=== PATIENT | male | born 1930 | race Caucasian/White ===

== ENCOUNTER 2019-02-19 13:02 | Outpatient (CLI) | payer MEDICARE, OTHER ==
[~2019-02-19] VITALS: Ht 182.9 cm; Wt 81.0 kg
[2019-02-19] MEDS ORDERED: MULT-178 PO (13:32)
[2019-02-19] MEDS ORDERED: LOVA20TA2 PO (13:32)
[2019-02-19] MEDS ORDERED: MELA5TAB14 PO (13:32)
[2019-02-19] MEDS ORDERED: TURM538C PO (13:32)
[2019-02-19 13:44] VITALS: BP 158/79
[2019-02-19 14:31] LABS: BILIRUBIN,URINE NEGATIVE (NEGATIVE); CLARITY,URINE CLEAR; COLOR,URINE YELLOW; GLUCOSE, URINE (UA) NEGATIVE (NEGATIVE); KETONES,URINE NEGATIVE (NEGATIVE); LEUKOCYTE ESTERASE ,URINE NEGATIVE (NEGATIVE); NITRITE,URINE NEGATIVE (NEGATIVE); PH,URINE 5 (5-9); PROTEIN,URINE NEGATIVE (NEGATIVE); UROBILINOGEN,URINE NORMAL (NORMAL)
[2019-02-19 14:39] LABS: PROTHROMBIN TIME PATIENT 13.4 SEC (12.2-14.7)
[2019-02-19 14:40] LABS: BACTERIA,URINE NEGATIVE /HPF; SQUAMOUS EPITHELIAL CELL,UR 0-2 /HPF
== END 2019-02-19 15:13 ==
LOC: PREOP 13:02
PROVIDERS: ATTEND Orthopaedic Surgery
DX: Z01.812 Encounter for preprocedural laboratory examination (principal); Z11.2 Encounter for screening for other bacterial diseases; M17.12 Unilateral primary osteoarthritis, left knee; R53.83 Other fatigue
CPT/HCPCS: 36415; 81000; 85610; 85652; 86850; 86900; 86901; 87081

== ENCOUNTER 2019-02-27 05:48 | Inpatient (IN) | payer MEDICARE ==
--- NOTE | 2019-02-18 08:35 | HISTORY AND PHYSICAL ---
DATE OF SERVICE: ADMISSION HISTORY AND PHYSICAL This will be for inpatient admission on 02/27/2019 for left total knee arthroplasty. The patient will require regular inpatient admission due to pain management issues, gait abnormalities, requirement for extensive physical therapy and associated comorbidities. HISTORY OF PRESENT ILLNESS: The patient is an 88-year-old gentleman with longstanding bilateral knee pain. He has undergone treatment with injections without relief. He has severe osteoarthritis in his medial and patellofemoral compartments by radiographs. He has obtained medical clearance. He understands that due to his advanced age, he is at higher risk for complications, but due to progressive loss of function, the patient has elected to proceed with total knee arthroplasty. REVIEW OF SYSTEMS: No chest pain, no shortness of breath. No dysuria. PAST MEDICAL HISTORY: Hypertension, hyperlipidemia. PAST SURGICAL HISTORY: Left shoulder. FAMILY HISTORY: Noncontributory. PRIMARY CARE PROVIDER: [facility]. MEDICATIONS: Melatonin, multivitamin, lovastatin, ibuprofen, lisinopril. ALLERGIES: No known drug allergies. SOCIAL HISTORY: The patient denies alcohol and tobacco use. PHYSICAL EXAMINATION: GENERAL: The patient is a well-developed, well-nourished, in no acute distress. HEENT: Normocephalic, atraumatic. Pupils are equal, round and reactive to light. Oropharynx is clear. NECK: Supple. No lymphadenopathy. LUNGS: Clear to auscultation bilaterally. HEART: Regular rate and rhythm. ABDOMEN: Soft, nontender, nondistended. EXTREMITIES: The patient ambulates with an antalgic gait. His left knee demonstrates varus alignment. No skin lesions are noted. His range of motion is 0/2/130. There is no varus valgus laxity. Negative anterior and posterior drawer. Slight effusions are noted. IMPRESSION: Severe left knee osteoarthritis, unresponsive to conservative measures. PLAN: Left total knee arthroplasty. Risks, benefits, options, ramifications and recovery were discussed at length with the patient. He understands and wishes to proceed. Job ID: [id number] DocumentID: [id number] Dictated Date: 02/18/2019 08:22:45 Application Processor Date: 02/18/2019 08:34:55 Dictated By: KEN RIOS MD
[2019-02-27] VITALS (11 sets, daily range): BP systolic 135–161; BP diastolic 53–89
[~2019-02-27] VITALS: Ht 182.9 cm; Wt 81.0 kg
[~2019-02-27 05:48] MED LIST: LOVA20TA2 PO; MELA5TAB14 PO; MULT-178 PO; TURM538C PO
[2019-02-27] MEDS: LACTATED RINGERS 1,000 ML IV PRN ×2 (06:25→07:45)
[2019-02-27] MEDS ORDERED: ROPIVACAINE 5MG/ML 30ML VIAL ONE (06:38)
[2019-02-27] MEDS ORDERED: MIDAZOLAM 2 MG/2 ML (VERSED) VIAL ONE (06:38)
[2019-02-27] MEDS ORDERED: CATHETER FLUSH 10 ML SYR IV PRN (06:45)
[2019-02-27] MEDS ORDERED: CEFUROXIME INJECTION 1,500 MG in WATER (STERILE) FOR INJECTION 15 ML IV ONE (06:45)
[2019-02-27] MEDS ORDERED: fentaNYL INJECTION 100 MCG/2 ML AMP ONE (06:57)
[2019-02-27] MEDS ORDERED: proPOfol 200 MG/20 ML (DIPRIVAN) VIAL IV ONE (06:57)
[2019-02-27] MEDS ORDERED: LIDOCAINE PF 2% 5 ML (XYLOCAINE) VIAL ONE ×2 (06:57→09:29)
[2019-02-27] MEDS ORDERED: SCOPOLAMINE 1.5 MG (TRANSDERM-SCOP) PATCH ONE (06:59)
[2019-02-27] MEDS ORDERED: FAMOTIDINE 20MG/2ML IV (PEPCID) ONE (06:59)
[2019-02-27] MEDS ORDERED: ONDANSETRON 4 MG/2 ML (SDV) Z0FRAN ONE (06:59)
[2019-02-27] MEDS ORDERED: SEVOFLURANE (ULTANE) 15 ML INHAL SOLN ONE ×2 (07:03→09:13)
[2019-02-27] MEDS ORDERED: ACETAMINOPHEN 325 MG TABLET PO PRN (07:15)
[2019-02-27] MEDS ORDERED: ONDANSETRON 4 MG/2 ML (SDV) Z0FRAN IV ONE (07:15)
[2019-02-27] MEDS ORDERED: morphine PCA 100 MG/100 ML BAG IV PRN (07:15)
[2019-02-27] MEDS ORDERED: FAMOTIDINE 20MG/2ML IV (PEPCID) IV ONE (07:15)
[2019-02-27] MEDS ORDERED: SCOPOLAMINE 1.5 MG (TRANSDERM-SCOP) PATCH TOP ONE (07:15)
[2019-02-27] MEDS ORDERED: ONDANSETRON 4 MG/2 ML (SDV) Z0FRAN IVP PRN ×2 (07:15→09:15)
[2019-02-27] MEDS ORDERED: diphenhydrAMINE 50 MG/ML INJ (BENADRYL) IVP PRN (07:15)
--- NOTE | 2019-02-27 07:26 | Progress Note-Pre Operative ---
Pre-Operative Progress Note H&P Reviewed The H&P was reviewed, patient examined and no changes noted. Date Seen by Provider: Feb 27, 2019 Time Seen by Provider: 07:12 Date H&P Reviewed: Feb 27, 2019 Time H&P Reviewed: 07:11 Pre-Operative Diagnosis: left knee primary osteoarthritis KEN RIOS MD Feb 27, 2019 07:26
--- NOTE | 2019-02-27 07:27 | Progress Note-Post Operative ---
Post-Operative Progess Note Surgeon (s)/Legal Recruiter (s) Surgeon KEN RIOS MD Legal Recruiter: Kelvin Petty Pre-Operative Diagnosis left knee primary osteoarthritis Post-Operative Diagnosis left knee primary osteoarthritis Procedure & Operative Findings Date of Procedure 02/27/19 Procedure Performed/Findings left total knee arthroplasty Anesthesia Type GETA Estimated Blood Loss Estimated blood loss (mL): minimal Specimens/Packing Specimens Removed none Packing: none KEN RIOS MD Feb 27, 2019 07:27
--- NOTE | 2019-02-27 07:29 | D/C HH Face to Face Order ---
D/C Face to Face Orders Instructions for Patient Via [facility], Patient Instructions/FollowUp: three weeks Physician to follow Patient: three weeks Discharge Diet for Home: Regular Diet Patient Data-Allergies,Ht & Wt Patient Allergies: Coded Allergies: No Known Drug Allergies (Unverified , 02/19/19) Height (Feet): 6 Height (Inches): 0.00 Weight (Pounds): 178 Weight (Ounces): 9.0 Home Health Need/Face to Face Date of Face to Face: Feb 27, 2019 Clinical Findings: Instability, Muscle weakness, Non or partial weight bearing, Pain with ambulation, Unsteady gait I have seen Pt [id number]: Yes Discharged To: Home Diagnosis/Conditions: left total knee arthroplasty Patient is Homebound due to: Juju fall risk due to instabilty, Muscle wea kness, Pain w/ambulation Homebound Status Due to the above stated illness, injury or surgical procedure (medical condition or diagnosis) and associated clinical findings, the patient is homebound because of his/her inability to leave home except with aid of a supportive device and/or person AND leaving the home requires a considerable and taxing effort or is medically contraindicated. Pt req the following assistanc: [facility] Nursing Orders Home Health Services Order: Physical Therapy-Evaluate & Treat DC left knee carlos and apply steri strips 03/13/19 [facility] Therapy Line Start Date: Feb 27, 2019 Therapy Orders Therapy Orders: Physical Therapy, PT to assess for OT Therapy Specific Orders: Eval assistive deivces, Teach enviro modifications/safety, Gait training, Increase strength/endurance, Provider maintenance therapy Certify Stmt I certify that this patient is under my care and that I, a nurse practitioner or a physician; a student assistant working with me, had a face to face encounter that - meets the physician face to face encounter requirements with this patient as dated. KEN RIOS MD Feb 27, 2019 07:29
[2019-02-27] MEDS ORDERED: OXYC1TAB87 PO (07:30)
[2019-02-27] MEDS ORDERED: INTRA-ARTICULAR IU ONE ×5 (07:30)
[2019-02-27] MEDS ORDERED: TRANEXAMIC ACID 100 MG/ML 10 ML INJECTION IV ONE (07:35)
[2019-02-27] MEDS ORDERED: GLYCOPYRROLATE 0.2 MG/ML (ROBINUL) 2 ML VIAL ONE (08:00)
[2019-02-27] MEDS ORDERED: HYDROmorphone 2 MG/ML VIAL (DILAUDID) ONE (09:12)
[2019-02-27] MEDS ORDERED: HYDROmorphone 2 MG/ML VIAL (DILAUDID) IV ONE (09:15)
--- NOTE | 2019-02-27 09:54 | Progress Note ---
Standard Progress Note Progress Notes/Assess & Plan Date Seen by a Provider: Feb 27, 2019 Time Seen by a Provider: 09:52 Progress/Assessment & Plan post op check no complaints radiographs--HW well positioned without fracture LLE--2 plus DP pulse with brisk cap refill. Intact DF and PF of toes and ankle with intact sensation throughout. S/P LTKA mobilize as able KEN RIOS MD Feb 27, 2019 09:54
--- NOTE | 2019-02-27 10:06 | Diagnostic Imaging Report ---
Indication: Postop left knee replacement. Time of exam: 9:29 AM Two views left knee were obtained. There are postop changes of total knee arthroplasty. Prosthetic elements are in good position. No fracture loosening is seen. Overlying skin carlos are noted. Impression: Satisfactory postop appearance to the left knee. Dictated by: Dictated on workstation # [id number]
--- NOTE | 2019-02-27 10:10 | NUR ---
received from recovery. patient alert. bilateral teds. scds applied. polar care on left knee. dressing clean dry and intact . O2 97% on room air. call light within reach
[2019-02-27] MEDS ORDERED: NS IV 1000 ML 1,000 ML ONE (10:43)
[2019-02-27] MEDS ORDERED: morphine PCA 100 MG/100 ML BAG IV ONE (10:45)
[2019-02-27] MEDS: NS IV 1000 ML 1,000 ML IV SCH ×3 (11:15→23:45)
--- NOTE | 2019-02-27 11:48 | NUR ---
morphine LEAF SORTER started. patient instructed on how to use LEAF SORTER . patient verbalizes understanding
--- NOTE | 2019-02-27 12:41 | OPERATIVE REPORT ---
DATE OF SERVICE: 02/27/2019 PREOPERATIVE DIAGNOSIS: Left knee primary osteoarthritis. POSTPERATIVE DIAGNOSIS: Left knee primary osteoarthritis. PROCEDURE: Left total knee arthroplasty. SURGEON: Alexandre Rios MD LAND SURVEYOR MANAGER: Kelvin Petty, who assisted throughout the procedure and closed the incisions. ANESTHESIA: General endotracheal by Chung Chambers. TOURNIQUET TIME: 65 minutes at 300 mmHg. ESTIMATED BLOOD LOSS: Minimal. DRAINS: None. COMPLICATIONS: None. POSTOPERATIVE PLAN: Routine protocol. MATERIALS: MicroPort cemented size 6 femur, cemented size 6 tibia with a 10 mm insert and cemented size 35 patella. The patient was transported to the recovery room in awake and stable condition. POSTOPERATIVE PLAN: Routine protocol. STATEMENT OF MEDICAL NECESSITY: The patient is an 88-year-old gentleman with longstanding progressive left knee pain, stiffness and loss of function. He has undergone treatment with injections, anti-inflammatories and rest without relief. Due to functional impairment and failure to improve with conservative measures, the patient elected to proceed with surgical intervention. DESCRIPTION OF PROCEDURE: After risks and benefits of the procedure were discussed and questions were answered, an informed consent was signed and placed on the chart. The operative site was confirmed in the preoperative holding area initialed by the surgeon. The patient was then transported to the operating room. After adequate levels of general endotracheal anesthetic were obtained, a timeout was called, confirming the operative site. The left lower extremity was prepped and draped in the usual sterile fashion with the leg elevated and the knee flexed, tourniquet was inflated to 300 mmHg. A standard anterior approach was utilized. Hemostasis was obtained with cautery. Medial parapatellar arthrotomy was used. A portion of the fat pad was resected. A subperiosteal release was carefully performed in the proximal medial tibia with curved osteotome being careful to stay on the bony surface. The ACL was resected. The intramedullary guide was passed into the femur and the distal cutting block was placed and distal cut was made and the femur was sized to a size 6, 6 cutting block was placed parallel to the epicondylar axis and cuts were made from posterior to anterior. A subperiosteal release was then carefully performed with the posterior distal femur being careful to take down the bony surface. Intramedullary guide was then passed into the tibia. The drop cindy transected the intermalleolar axis and the cutting block was felt to be in excellent position. The cut was made. The baseplate was placed and felt to be in excellent position. This was then drilled with the drill and keel punch. The femoral trial was placed and the trochlear cut was made. The patella was then prepared using the freehand technique by resecting 10 mm off the undersurface. A guide was placed and peg holes were drilled. The trials were inserted with a 10 mm insert. Full extension was easily obtained, 120 degrees of flexion with gravity was easily obtained. The patella tracked well. There was no anterior/posterior or medial/lateral laxity in flexion or extension. The trials were removed. The joint was irrigated with pulse lavage. The bony ends were irrigated and dried. The periarticular block was placed in the posterior capsule, medial and lateral retinaculum, extensor mechanism and subcutaneous tissues. The tibia was then irrigated and dried and the baseplate was cemented into position. Excessive cement was removed. The superior surface was irrigated and dried and the polyethylene insert was placed. The distal femur was irrigated and dried and the femoral prosthesis was cemented into position. Excessive cement was removed. The knee was brought out in full extension until the cement had cured. The undersurface of patella was irrigated and dried and the patellar button was cemented into position. Once the cement had cured, knee was taken through range of motion, full extension was easily obtained, 120 degrees of flexion with gravity was easily obtained. There was no anterior/posterior or medial/lateral laxity in flexion or extension and the patella tracked well. The joint was further irrigated. The arthrotomy was closed with #2 Tevdek in [id number] interrupted fashion. The knee was flexed and the repair was stable with the patella tracking well. The subcutaneous tissues were irrigated using a total of 6 liters throughout the procedure. A 0 Vicryl was used for the deep subcutaneous tissue, 2-0 Vicryl for the superficial subcutaneous tissue. [place] were used on the skin. A soft dressing was applied. The tourniquet was deflated. The patient was transported to the recovery room awake and in stable condition. Job ID: [id number] DocumentID: [id number] Dictated Date: 02/27/2019 09:15:41 Doctorate Of Chiropractic Date: 02/27/2019 12:40:48 Dictated By: ALEXANDRE RIOS MD
--- NOTE | 2019-02-27 13:46 | Physical Therapy Evaluation ---
PT Evaluation-General Medical Diagnosis Admission Date Feb 27, 2019 at 05:48 Medical Diagnosis: left TKA Onset Date: Feb 27, 2019 Therapy Diagnosis Therapy Diagnosis: impaired mobility, strength, endurance, ROM Height/Weight Height (Feet): 6 Height (Inches): 0.00 Weight (Pounds): 178 Weight (Ounces): 9.0 Precautions Precautions/Isolations: Standard Precautions Weight Bear Status Left Lower Extremity: Left Weight Bearing/Tolerated Referral Physician: Kelvin Petty Reason for Referral: Evaluation/Treatment Medical History Pertinent Medical History: HTN Additional Medical History hyperlipidemia Reviewed History: Yes Social History Home: Single Level Current Living Status: Spouse Entry Into Home: Stairs With Railing PT Steps Into Home: 3 Patient states he is going to stay with his son for a while. He lives in a mobile home with his and he says he will not be able to get around in it. Prior/Core FIM Prior Level of Function Therapy Code Descriptions/Definitions Functional [place] Measure: 0=Not Assessed/NA 4=Minimal Assistance 1=Total Assistance 5=Supervision or Setup 2=Maximal Assistance 6=Modified [place] 3=Moderate Assistance 7=Complete [place] Therapy Quality Codes: 6 Independent with activity with or without an assistive device 5 Patient requires set up or clean up by helper. Patient completes activity by themselves 4 Supervision or touching assist (CGA). [place] provide cues , steadying assist 3 The helper provides less than half the effort to complete the activity 2 The helper provides more than half the effort to complete the activity 1 Dependent. The helper does all the effort to complete an activity 7 Patient refused to complete or attempt activity 9 The patient did not perform the activity before the current illness or injury 88 Not attempted due to Medical conditions or safety concerns Functional Abilities and Goals: Independent: Patient completed the activities by him/herself, with or without an assistive device, with no assistance from a helper. Needed Some Help: Patient needed partial assistance from another person to complete activities. Dependent: A helper completed the activities for the patient. Unknown: Not Applicable: Bed Mobility: 6 Transfers (B,C,W/C) (FIM): 6 Gait: 6 Stairs: 6 Indoor Mobility (Ambulation): Independent Stairs: Independent Patient states he was using a 4-wheeled walker previously. PT Evaluation-Current Subjective Patient in bed pre tx, agrees to PT, has no pain at rest. Pt/Family Goals to be independent at home Objective Patient Orientation: Person, Confused, Situation Attachments: IV ROM/Strength ROM Lower Extremities left knee extension +3 degrees, flexion 95 degrees Strength Lower Extremities NT Neuromuscular (Tone, Coordination, Reflexes) NT Sensory Vision: Wears Glasses Hearing: Functional Sensation Right Lower Extremit: Intact Sensation Left Lower Extremity: Impaired Sensation Lower Extremities Patient is still numb from the knee down on the left side. Transfers Therapy Code Descriptions/Definitions Functional [place] Measure: 0=Not Assessed/NA 4=Minimal Assistance 1=Total Assistance 5=Supervision or Setup 2=Maximal Assistance 6=Modified [place] 3=Moderate Assistance 7=Complete [place] Transfers (B, C, W/C) (FIM): 4 Scootin Rollin Supine to/from Sit: 5 Sit to/from Stand: 4 Patient performs bed mobility with SBA, sit to stand with CGA. Patient is not able to bear any weight on his left leg. Even though he has active movement and can perform his exercises it pretty much hangs almost limp while standing. No ambulation at this time. Balance Sitting Static: Normal Sitting Dynamic: Normal Standing Static: Fair Standing Dynamic: Fair Treatment Supine LLE TKA protocol x10 (AP, QS, HS, SAQ, SLR) Assessment/Needs Patient has impaired mobility, strength, endurance, ROM post left TKA. Patient is not able to ambulate at this time, has knee buckling and is not able to bear weight. Patient in bed post tx with nurse call, phone, tray, all needs met. SCD's on and polar care on. CPM donned and set to leg and set to 60/-2. Rehab Potential: Fair PT Short Term Goals Short Term Goals Time Frame: Mar 06, 2019 Transfers (B,C,W/C) (FIM): 6 Gait (FIM): 2 Gait Distance Comment: 50' Gait Level of Assist: 4 Gait Assistive Device: FWW PT Plan Problem List Problem List: Activity Tolerance, Functional Strength, Safety, Balance, Gait, Transfer, Bed Mobility, ROM Treatment/Plan Treatment Plan: Continue Plan of Care Treatment Plan: Bed Mobility, Education, Functional Activity Martin, Functional Strength, Gait, Safety, Therapeutic Exercise, Transfers Treatment Duration: Mar 06, 2019 Frequency: 11 times per week Estimated Hrs Per Day: .25 hour per day Patient and/or Family Agrees t: Yes Safety Risks/Education Patient Education: Gait Training, Transfer Techniques, Reviewed Precautions, Reviewed Use of Ice, Correct Positioning, Safety Issues Teaching Recipient: Patient Teaching Methods: Demonstration, Discussion Response to Teaching: Reinforcement Needed Discharge Recommendations Plan Patient will perform bed mobility and transfer training, balance and endurance training, functional strengthening, stair training, gait training, and education, to improve functional mobility and independence at home. Therapy D/C Recommendations: Home w/ Family Support Time/GCodes Time In: 1305 Time Out: 1335 Total Billed Treatment Time: 30 Total Billed Treatment 1 visit EVL 15' FA 15' ALFONSO CLIFFORD PT Feb 27, 2019 13:46
[2019-02-27] MEDS: SENNA W/DOCUSATE (SENOKOT S) TABLET PO SCH ×2 (16:00→20:48)
[2019-02-27] MEDS: CEFUROXIME INJECTION 750 MG in WATER (STERILE) FOR INJECTION 10 ML IV SCH ×2 (16:05→23:45)
[2019-02-28] VITALS (7 sets, daily range): BP systolic 132–169; BP diastolic 56–77
--- NOTE | 2019-02-28 01:50 | NUR ---
THIS RN CALLED TO ROOM. PT HAS PULLED OUT IV TRING TO GET TO BOTTOM OF BED TO USE URINAL. THIS RN HAS INFORMED PT SEVERAL TIMES TO USE TO THE CALL LIGHT WHEN USING URINAL R/T ALL THE CORDS. OLGA RN, AND PCCT HELPING PT UP IN BED. THIS RN RESTARTED PT IV WITH ONE ATTEMPT. PT INFORMED AT THIS TIME TO USE CALL IF NEEDING ASSISTANCE. PT STATES UNDERSTANDING.
--- NOTE | 2019-02-28 01:55 | NUR ---
CALLED TO PT ROOM R/T PT WANTING TO TIE UP CADD,IV,[id number] TUBING TOGETHER. AT THIS TIME PT IS SITTING AT END OF BED WITH ALL THE CORDS TANGLED. THIS RN INFORMED PT IT IS NOT SAFE TO TIE CORDS TOGETHER. THIS RN ALSO INFORMED BECAUSE OF ALL THIS CORD HE NEEDS TO CALL FOR HELP.PT INFORMED THIS RN HE DOESN'T NEED HELP HE HAS BEEN DOING EVERY ON HIS OWN ALL HIS LIFE. THIS RN INFORMED PT IT IS NOT SAFE AND HE COULD TRIP AND FALL. PT INFORMS THIS RN IT IS MY FAULT ALL HIS CORDS ARE TANGLED UP AND I AM STUPID AND DO NOT KNOW WHAT I AM DOING. THIS RN ATTEMPTS SEVERAL TIMES TO EDUCATE PT ON THE NEED FOR ASSISTANCE AND WHY I WILL NOT TIE CORD TOGETHER. PT REFUSES TO ACCEPT THAT I WILL NOT TIE THEM UP OR ALLOW HIM TO GET UP ON HIS OWN. PT INFORMS THIS RN HE WANTS A DIFFERENT NURSE BECAUSE I AM AN IDIOT AND WILL NOT LISTEN TO HIM. THIS RN CALLS GUS GALLEGOS AT THIS TIME. SHE ENTERS ROOM TO TALK WITH PT. GUS GALLEGOS INFORMED OF PT REQUEST. GUS ARRIETA CONTINUES TO TALK WITH PT. THIS RN LEAVES ROOM AT THIS TIME.
--- NOTE | 2019-02-28 02:50 | NUR ---
REPORT GIVEN TO ABRAHAM GREER AT THIS TIME.
[2019-02-28] MEDS: MULTIVIT W/MINERALS TAB (THERAGRAN M) PO SCH (06:19)
--- NOTE | 2019-02-28 07:19 | Anesthesia-General Post-Op ---
General Patient Condition Mental Status/LOC: Same as Preop Cardiovascular: Satisfactory Nausea/Vomiting: Absent Respiratory: Satisfactory Pain: Controlled Complications: Absent Post Op Complications Complications None Follow Up Care/Instructions Patient Instructions None needed. Anesthesia/Patient Condition Patient Condition Patient is doing well, no complaints, stable vital signs, no apparent adverse anesthesia problems. No complications reported per nursing. D/C home per [facility] Criteria: No NORM COVARRUBIAS CRNA Feb 28, 2019 07:19
[2019-02-28 07:22] LABS: ALBUMIN 3.7 GM/DL (3.2-4.5); BILIRUBIN,TOTAL 0.3 MG/DL (0.1-1.0); CALCIUM 8.9 MG/DL (8.5-10.1); CREATININE SERUM 1.2 MG/DL (0.60-1.30); POTASSIUM 3.8 MMOL/L (3.6-5.0); TOTAL PROTEIN 6.2 GM/DL (6.4-8.2)
--- NOTE | 2019-02-28 07:49 | Progress Note ---
Standard Progress Note Progress Notes/Assess & Plan Date Seen by a Provider: Feb 28, 2019 Time Seen by a Provider: 07:48 Progress/Assessment & Plan post op check no complaints radiographs--HW well positioned without fracture LLE--2 plus DP pulse with brisk cap refill. Intact DF and PF of toes and ankle with intact sensation throughout. S/P LTKA mobilize as able Final Diagnosis no complaints Vital Signs Date Time Temp Pulse Resp B/P (MAP) Pulse Ox O2 Delivery O2 Flow Rate FiO2 02/28/19 07:15 96 Room Air 02/28/19 04:00 97.5 56 14 134/56 (82) 99 Room Air 02/28/19 03:12 98 Room Air 02/28/19 00:00 98.5 61 18 134/61 (85) 99 Room Air 02/27/19 22:11 99 Room Air 02/27/19 21:00 18 02/27/19 21:00 Room Air 02/27/19 20:25 98.0 66 19 138/53 (81) 98 Room Air 02/27/19 19:28 96 Room Air 02/27/19 19:17 18 02/27/19 16:53 98.6 62 18 135/62 (86) 95 Room Air 02/27/19 14:04 93 Room Air 02/27/19 12:22 97.8 65 16 146/63 (90) 100 02/27/19 12:15 98 Room Air 02/27/19 10:10 Room Air 02/27/19 10:10 Room Air 02/27/19 10:00 98.7 13 99 Room Air 02/27/19 09:50 14 100 02/27/19 09:40 16 100 OxyMask 10 02/27/19 09:30 OxyMask 02/27/19 09:30 16 100 OxyMask 10 02/27/19 09:20 16 100 OxyMask 02/27/19 09:11 16 100 OxyMask 02/27/19 09:06 97.1 20 100 OxyMask 02/27/19 09:06 OxyMask 10 I & O 02/28/19 07:00 Intake Total 4025 ml Output Total 1430 ml Balance 2595 ml Laboratory Tests Test 02/28/19 05:28 Range/Units Sodium Level 142 135-145 MMOL/L Potassium Level 3.8 3.6-5.0 MMOL/L Chloride Level 109 H 98-107 MMOL/L Carbon Dioxide Level 24 21-32 MMOL/L Anion Gap 9 5-14 MMOL/L Blood Urea Nitrogen 26 H 7-18 MG/DL Creatinine 1.20 0.60-1.30 MG/DL Estimat Glomerular Filtration Rate 57 BUN/Creatinine Ratio 22 Glucose Level 98 70-105 MG/DL Calcium Level 8.9 8.5-10.1 MG/DL Corrected Calcium 9.1 8.5-10.1 MG/DL Total Bilirubin 0.3 0.1-1.0 MG/DL Aspartate Amino Transf (AST/SGOT) 23 5-34 U/L Alanine Aminotransferase (ALT/SGPT) 16 0-55 U/L Alkaline Phosphatase 54 40-136 U/L Total Protein 6.2 L 6.4-8.2 GM/DL Albumin 3.7 3.2-4.5 GM/DL LLE--dressing intact. NVI distally. no calf tenderness. Neg Alison's s/p LTKA doing well PT/OT KEN RIOS MD Feb 28, 2019 07:49
[2019-02-28] MEDS: SENNA W/DOCUSATE (SENOKOT S) TABLET PO SCH ×2 (08:33→19:58)
[2019-02-28] MEDS: oxyCODONE/APAP 5/325MG (PERCOCET 5) TABLET PO PRN ×7 (08:33→22:46)
[2019-02-28] MEDS: ASPIRIN E.C. 81 MG (ECOTRIN) TAB PO SCH (08:33)
[2019-02-28] MEDS: ENOXAPARIN 30 MG/0.3 ML (LOVENOX) SYR SC SCH ×2 (08:47→19:57)
--- NOTE | 2019-02-28 10:07 | Physical Therapy Daily Note ---
PT Daily Note-Current Subjective Patient agrees to PT . Mental Status Patient Orientation: Person, Time, Situation Attachments: IV Transfers Therapy Code Descriptions/Definitions Functional [place] Measure: 0=Not Assessed/NA 4=Minimal Assistance 1=Total Assistance 5=Supervision or Setup 2=Maximal Assistance 6=Modified [place] 3=Moderate Assistance 7=Complete [place] Therapy Quality Codes: 6 Independent with activity with or without an assistive device 5 Patient requires set up or clean up by helper. Patient completes activity by themselves 4 Supervision or touching assist (CGA). [place] provide cues , steadying assist 3 The helper provides less than half the effort to complete the activity 2 The helper provides more than half the effort to complete the activity 1 Dependent. The helper does all the effort to complete an activity 7 Patient refused to complete or attempt activity 9 The patient did not perform the activity before the current illness or injury 88 Not attempted due to Medical conditions or safety concerns Transfers (B, C, W/C) (FIM): 6 Scootin Supine to/from Sit: 6 Sit to/from Stand: 6 Bed to/from Chair: 6 Weight Bearing Left Lower Extremity: Left Weight Bearing/Tolerated Gait Training Gait (FIM): 5 Distance (FIM): 3=150 ft Distance: 325' Gait Level of Assist: 5 Gait Assistive Device: FWW safe, reciprocal pattern Exercises Supine Ex: Ankle pumps, Quad Set, Heel Slides, Straight leg raise Supine Reps: 15 Assessment Patient is up in recliner with needs met. Patient educated on safety concerns due to impulsive behavior. RN present and aware. Chair alarm activated. PT Short Term Goals Short Term Goals Time Frame: Mar 06, 2019 Transfers (B,C,W/C) (FIM): 6 Gait (FIM): 2 Gait Distance Comment: 50' Gait Level of Assist: 4 Gait Assistive Device: FWW PT Plan Treatment/Plan Treatment Plan: Continue Plan of Care Treatment Plan: Bed Mobility, Education, Functional Activity [place], Functional Strength, Gait, Safety, Therapeutic Exercise, Transfers Treatment Duration: Mar 06, 2019 Frequency: 11 times per week Estimated Hrs Per Day: .25 hour per day Patient and/or Family Agrees t: Yes Time/GCodes Time In: 805 Time Out: 835 Total Billed Treatment Time: 30 Total Billed Treatment 1 visit EX 15 min GT 15 min SANCHEZ LOREDO PT Feb 28, 2019 10:07
--- NOTE | 2019-02-28 10:37 | Consultation - Hospitalist ---
HPI History of Present Illness: HPI/Chief Complaint CC: Medical management following left total knee arthroplasty performed by Dr. Ambriz- uncomplicated POD# 1 HPI: This is an 88yoWM who lives in [place] and has a PCP in [place] and is s/p uncomplicated left TKA. He has not had a BM yet, he is feeling as if he might need to go and he has been urinating fairly well although having some retention symptoms that are very mild. I did review his CMP which is all normal, but the CBC was not done for some reason so will order that STAT and evaluate those results. Pt reports his pain is under control and may very well be a inpatient rehab candidate. Source: patient Exam Limitations: no limitations Date Seen 02/28/19 Attending Physician Alexandre Ambriz MD PCP No,Local Physician Referring Physician Date of Admission Feb 27, 2019 at 05:48 Home Medications & Allergies Home Medications Reviewed patient Home Medication Reconciliation performed by pharmacy medication reconciliations contract technician and/or nursing. Patients Allergies have been reviewed. Allergies Allergies Coded Allergies No Known Drug Allergies (Unverified02/19/19) Past Xlwrjkv-Ftlxcs-Dzvmcf Hx Past Med/Social Hx: Reviewed Nursing Past Med/Soc Hx, Reviewed and Corrections made Patient Social History Marrital Status: single Employed/Student: retired Alcohol Use: Denies Use Recreational Drug Use: No Physical Abuse Screen: No Sexual Abuse: No Recent Foreign Travel: No Contact w/other who traveled: No Recent Hopitalizations: No Recent Infectious Disease Expo: No Seasonal Allergies Seasonal Allergies: Yes (MILD) Past Medical History Surgeries: Orthopedic Sexually Transmitted Disease: No HIV/AIDS: No Musculoskeletal: Arthritis Loss of Vision: Denies Hearing Impairment: Denies History of Blood Disorders: No Adverse Reaction to Blood Mason: No (N/A) Family History Respiratory disorder 19 FATHER Review of Systems Constitutional: see HPI, weakness EENTM: no symptoms reported Respiratory: no symptoms reported Cardiovascular: no symptoms reported Gastrointestinal: no symptoms reported Genitourinary: no symptoms reported Musculoskeletal: see HPI Skin: no symptoms reported Psychiatric/Neurological: No Symptoms Reported All Other Systems Reviewed Negative Unless Noted: Yes Physical Exam Physical Exam Vital Signs Vital Signs - First Documented Capillary Refill : Less Than 3 Seconds Height, Weight, BMI Height: 6'0.00" Weight: 178lbs. 9.0oz. [id number]; 24.2 BMI Method: General Appearance: No Apparent Distress, WD/WN, Chronically ill Eyes: Bilateral Eye Normal Inspection, Bilateral Eye PERRL HEENT: PERRL/EOMI, Normal ENT Inspection, Pharynx Normal Neck: Full Range of Motion, Normal Inspection, Non Tender, Supple, Carotid Bruit Respiratory: Chest Non Tender, Lungs Clear, Normal Breath Sounds, No Accessory Muscle Use, No Respiratory Distress Cardiovascular: Regular Rate, Rhythm, No Edema, No Gallop, No JVD, No Murmur, Normal Peripheral Pulses Gastrointestinal: Normal Bowel Sounds, No Organomegaly, No Pulsatile Mass, Non Tender, Soft Back: Normal Inspection, No CVA Tenderness, No Vertebral Tenderness Extremity: Normal Capillary Refill, Normal Inspection, Normal Range of Motion (except post op lower extremity), Non Tender, No Calf Tenderness, No Pedal Edema Neurologic/Psychiatric: Alert, Oriented x3, No Motor/Sensory Deficits, Normal Mood/Affect Skin: Normal Color, Warm/Dry Lymphatic: No Adenopathy Results Results/Procedures Labs Laboratory Tests 02/28/19 05:28 Patient resulted labs reviewed. Assessment/Plan Assessment and Plan Assess & Plan/Chief Complaint Assessment: s/p left TKA per Dr Ambriz POD # 1 Insomnia Urinary retention? 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
[2019-02-28 10:51] LABS: BASOPHILS % (AUTO) 0 % (0-10); EOSINOPHILS % (AUTO) 0 % (0-10); HEMATOCRIT 33 % (40-54); HEMOGLOBIN 10.4 G/DL (13.3-17.7); LYMPHOCYTES # (AUTO) 1.1 X 10^3 (1.0-4.0); LYMPHOCYTES % (AUTO) 11 % (12-44); MEAN CORPUSCULAR HEMOGLOBIN 29 PG (25-34); MEAN CORPUSCULAR HGB CONC 32 G/DL (32-36); MEAN CORPUSCULAR VOLUME 93 FL (80-99); MEAN PLATELET VOLUME 10.3 FL (7.4-10.4); MONOCYTES % (AUTO) 10 % (0-12); NEUTROPHILS # (AUTO) 7.5 X 10^3 (1.8-7.8); NEUTROPHILS % (AUTO) 78 % (42-75); PLATELET COUNT 181 10^3/uL (130-400); RED CELL DISTRIBUTION WIDTH 13.9 % (10.0-14.5); WHITE BLOOD COUNT 9.6 10^3/uL (4.3-11.0)
--- NOTE | 2019-02-28 13:12 | Occupational Therapy Eval ---
OT Evaluation-General/PLF Medical Diagnosis Admission Date Feb 27, 2019 at 05:48 Medical Diagnosis: left TKA Onset Date: Feb 27, 2019 Therapy Diagnosis Therapy Diagnosis: Decreased ADL skills Height/Weight Height (Feet): 6 Height (Inches): 0.00 Weight (Pounds): 178 Weight (Ounces): 9.0 Precautions Precautions/Isolations: Fall Prevention, Standard Precautions Safety Interventions: None Weight Bear Status Weight Bearing Restriction: Weight Bearing/Tolerated Referral Physician: Kelvin Petty Referral Reason: Activity Tolerance, Self Care, Evaluation/Treatment, Strengthening/ROM Medical History Pertinent Medical History: HTN Additional Medical History Hyperlipidemia Current History Pt. had elective knee replacement. Reviewed History: Yes Social History Home: Single Level Current Living Status: Spouse Entry Into Home: Stairs With Railing Steps Into Home: 2 Pt. reports that at discharge, he will be staying with his son in [place], [place]. His son has 2 steps at entry with a rail. Pt. reports that he wants to go back to his own home, a mobile home in [facility], as soon as possible however because his is "not in good shape" and he has to assist her. Pt. has 6 steps at his home. ADL-Prior Level of Function Therapy Code Descriptions/Definitions Functional Bowman Measure: 0=Not Assessed/NA 4=Minimal Assistance 1=Total Assistance 5=Supervision or Setup 2=Maximal Assistance 6=Modified Bowman 3=Moderate Assistance 7=Complete Bowman Therapy Quality Codes: 6 Independent with activity with or without an assistive device 5 Patient requires set up or clean up by helper. Patient completes activity by themselves 4 Supervision or touching assist (CGA). [place] provide cues , steadying as sist 3 The helper provides less than half the effort to complete the activity 2 The helper provides more than half the effort to complete the activity 1 Dependent. The helper does all the effort to complete an activity 7 Patient refused to complete or attempt activity 9 The patient did not perform the activity before the current illness or injury 88 Not attempted due to Medical conditions or safety concerns Functional Abilities and Goals: Independent: Patient completed the activities by him/herself, with or without an assistive device, with no assistance from a helper. Needed Some Help: Patient needed partial assistance from another person to complete activities. Dependent: A helper completed the activities for the patient. Unknown: Not Applicable: ADL PLOF Comments Pt. reports that he was independent with daily tasks. Self Care: Independent Functional Cognition: Unknown DME/Equipment: Bath Chair, Bedside Commode, Tub/Shower DME/Equipment Comments Pt. reports that he has recently purchased a shower seat and BSC and can use at either home. Pt. also has a rolling walker with a seat. Drive Self: Yes OT Current Status Subjective Pt. reports 4/10 pain in left knee. Pt. using FILM WRITER. Appearance Pt. up in chair. Alert and agrees to work with OT. Mental Status/Objective Patient Orientation: Unable to Assess Pt. is somewhat impulsive. States that he will go walking on his own and has to be reminded to request assistance. Pt. has chair alarm in place. Pt. also states that he needs to get home to as soon as possible to take care of her. This was reported to social work as pt. does not seem quite aware of his own limitations at this time. Attachments: IV, Oxygen Current Glasses/Contacts: Yes Upper Extremity ROM WFL Upper Extremity Strength WFL ADL-Treatment Therapy Code Descriptions/Definitions Functional Bowman Measure: 0=Not Assessed/NA 4=Minimal Assistance 1=Total Assistance 5=Supervision or Setup 2=Maximal Assistance 6=Modified Bowman 3=Moderate Assistance 7=Complete Bowman Therapy Quality Codes: 6 Independent with activity with or without an assistive device 5 Patient requires set up or clean up by helper. Patient completes activity by themselves 4 Supervision or touching assist (CGA). [place] provide cues , steadying assist 3 The helper provides less than half the effort to complete the activity 2 The helper provides more than half the effort to complete the activity 1 Dependent. The helper does all the effort to complete an activity 7 Patient refused to complete or attempt activity 9 The patient did not perform the activity before the current illness or injury 88 Not attempted due to Medical conditions or safety concerns Lower Body Dressing (FIM): 5 (Pt. is able to doff/don slipper socks and shoes with SBA. Pt. does have shoe horn from home that he uses to get socks off and shoes on. Utilized this during therapy.) Transfers (B, C, W/C) (FIM): 4 (CGA sit-stand from chair.) Pt. is able to stand from chair, and is able to bend over to feet with some effort. Physically, states that he is doing well and that he ambulated earlier in hallway with therapy. However, during the course of interview pt. verbalizes that he will be ambulating by himself, that he needs to get home soon, and states that he can drive his using his right LE. Social work notified of pt's impulsivity and lack of awareness. This is first day post op and pt. on FILM WRITER. Safety concerns at this time. Will continue to work with pt. for increased independence and discharge planning. Education OT Patient Education: Correct positioning, Modified ADL techniques, Progress toward Goal/Update tx plan, Purpose of tx/functional activities, Reviewed precautions, Rehab process, Transfer techniques Teaching Recipient: Patient Teaching Methods: Demonstration, Discussion Response to Teaching: Verbalize Understanding, Return Demonstration, Reinforcement Needed OT Short Term Goals Short Term Goals Transfers (B,C,W/C) (FIM): 6 1=Demonstrate adherence to instructed precautions during ADL tasks. 2=Patient will verbalize/demonstrate understanding of assistive devices/modifications for ADL. 3=Patient will improve strength/tolerance for activity to enable patient to perform ADL's. OT Ticket Taker [place] Goals Fdc Goals Time Frame: Mar 07, 2019 Eating (FIM): 6 Grooming(FIM): 6 Bathing(FIM): 5 Upper Body Dressing(FIM): 5 Lower Body Dressing(FIM): 5 Toileting(FIM): 6 Transfers (B,C,W/C) (FIM): 6 Toilet/Commode Transfer(FIM): 6 Shower Transfer(FIM): 5 Additional Goals: 1-Demonstrate ADL Tasks, 2-Verbalize Understanding, 3- ImproveStrength/Martin 1=Demonstrate adherence to instructed precautions during ADL tasks. 2=Patient will verbalize/demonstrate understanding of assistive devices/modifications for ADL. 3=Patient will improve strength/tolerance for activity to enable patient to perform ADL's. OT Education/Plan Problem List/Assessment Assessment: Decreased Activ Tolerance, Decreased Safety Aware, Impaired Cognition, Impaired I ADL's, Impaired Self-Care Skills Pt. somewhat impulsive and requires cues to reinforce safety. Pt. up in chair with chair alarm in place. Discharge Recommendations Plan/Recommendations: Continue POC Treatment Plan/Plan of Care Treatment,Training & Education: Yes Patient would benefit from OT for education, treatment and training to promote independence in ADL's, mobility, safety and/or upper extremity function for ADL's. Plan of Care: ADL Retraining, Functional Mobility, UE Funct Exercise/Act Treatment Duration: Mar 07, 2019 Frequency: 5 times per week Estimated Hrs Per Day: .5 hour per day Agreement: Yes Rehab Potential: Good Time/GCodes Start Time: 08:45 Stop Time: 09:10 Total Time Billed (hr/min): 25 Billed Treatment Time 1, EVM x 10minutes, ADL x 15minutes SKYLER FARLEY OT Feb 28, 2019 13:12
--- NOTE | 2019-02-28 14:07 | NUR ---
IRF Evaluation Order received to evaluate patient for the ARU. Upon review of chart, it appears patient is transferring with modified independence, ambulating (325ft, FWW) with supervision, and completing LE dressing with supervision; therefore, the patient does not require intensive therapies, at this time. CM/SS notified. Thank you for this referral.
--- NOTE | 2019-02-28 14:12 | Physical Therapy Daily Note ---
PT Daily Note-Current Subjective Patient agrees to PT. Pain Numeric Pain Scale: 5-Moderate Pain Location: Left Location Body Site: Knee Pain Description: Acute Mental Status Patient Orientation: Person, Time, Situation Attachments: Polar Pack, IV Transfers Therapy Code Descriptions/Definitions Functional [place] Measure: 0=Not Assessed/NA 4=Minimal Assistance 1=Total Assistance 5=Supervision or Setup 2=Maximal Assistance 6=Modified [place] 3=Moderate Assistance 7=Complete [place] Therapy Quality Codes: 6 Independent with activity with or without an assistive device 5 Patient requires set up or clean up by helper. Patient completes activity by themselves 4 Supervision or touching assist (CGA). [place] provide cues , steadying assist 3 The helper provides less than half the effort to complete the activity 2 The helper provides more than half the effort to complete the activity 1 Dependent. The helper does all the effort to complete an activity 7 Patient refused to complete or attempt activity 9 The patient did not perform the activity before the current illness or injury 88 Not attempted due to Medical conditions or safety concerns Transfers (B, C, W/C) (FIM): 6 Scootin Supine to/from Sit: 6 Sit to/from Stand: 6 Bed to/from Chair: 6 Weight Bearing Left Lower Extremity: Left Weight Bearing/Tolerated Gait Training Gait (FIM): 6 Distance (FIM): 3=150 ft Distance: 400' Gait Level of Assist: 6 Gait Assistive Device: FWW slow, antalgic, functional gait sequence Exercises Supine Ex: Ankle pumps, Quad Set, Heel Slides, Straight leg raise Supine Reps: 10 (bilaterally) Seated Therapy Exercises: Long arc quads Seated Reps: 15 Assessment Patient AROM sitting EOB 90-5 degrees. Patient tolerated treatment well and is up in recliner with needs met. Plan dismissal in a.m. PT Short Term Goals Short Term Goals Time Frame: Mar 06, 2019 Transfers (B,C,W/C) (FIM): 6 Gait (FIM): 2 Gait Distance Comment: 50' Gait Level of Assist: 4 Gait Assistive Device: FWW PT Plan Treatment/Plan Treatment Plan: Continue Plan of Care Treatment Plan: Bed Mobility, Education, Functional Activity Martin, Functional Strength, Gait, Safety, Therapeutic Exercise, Transfers Treatment Duration: Mar 06, 2019 Frequency: 11 times per week Estimated Hrs Per Day: .25 hour per day Patient and/or Family Agrees t: Yes Time/GCodes Time In: 1331 Time Out: 1354 Total Billed Treatment Time: 23 Total Billed Treatment 1 visit EX 15 min GT 8 min SANCHEZ LOREDO PT Feb 28, 2019 14:12
--- NOTE | 2019-02-28 14:23 | NUR ---
CM/SS, respond to consult, post op left knee replacement. HHC: Coordinated with patient preferred agency, [facility]. DME: Patient has 4WW, physical therapist indicates he has all the DME he needs. SUMMARY: Patient resides in [facility] with his spouse Indigo Rodriguez. [place]" and that he made arrangements to stay with his son locally for a recovery period. Patient will be with Jeremie "Jesús Rodriguez for recuperation and HHC services. Vazquez/patient understand patient must maintain "homebound" status for Medicare to cover HHC. Mrs. Rodriguez is apparently IADL, she drives, and intends to stay at their home base but visit back and forth while patient remains in this area. Patient also drives when well and he reflects that he will begin to return to his PLOF as soon as able. Spoke with Vazquez by phone, he or another son will citrus picker patient at discharge and monitor him at home. Vazquez will be off work all weekend. Patient appears younger than his stated age, he indicates he is READY to leave as soon as discharged. Updated Dr. Ambriz all arrangements were in place. Addendum: 02/28/19 at 1446 by BOY GARRETT Vazquez Rodriguez, son [address] [place] [address]
[2019-02-28] MEDS: NS IV 1000 ML 1,000 ML IV SCH ×2 (19:58→22:55)
--- NOTE | 2019-03-01 00:32 | DISCHARGE SUMMARY ---
DATE OF SERVICE: DIAGNOSES: 1. Left knee primary osteoarthritis. 2. Hypertension. 3. Hyperlipidemia. SUMMARY: The patient is an 88-year-old gentleman who was admitted the day of left total knee arthroplasty, which he underwent without complications. At the time of discharge, his wound was clean and dry. He was tolerating his diet well and tolerating pain with oral pain medication. CONDITION ON DISCHARGE: Good. DISCHARGE DIET: Regular. FOLLOWUP: Followup is in three weeks. Home physical therapy has been arranged. ACTIVITY: Weightbearing as tolerated with a walker. DISCHARGE MEDICATIONS: Home medications, aspirin one per day for four weeks and Percocet as needed for pain. Job ID: [id number] DocumentID: [id number] Dictated Date: 02/28/2019 07:50:40 Material Chaser Date: 03/01/2019 00:31:30 Dictated By: KEN RIOS MD
--- NOTE | 2019-03-01 01:55 | NUR ---
Morphine from CADD pump discontinued and 90 mls wasted with [place].
[2019-03-01] MEDS: oxyCODONE/APAP 5/325MG (PERCOCET 5) TABLET PO PRN (02:19)
[2019-03-01 03:31] VITALS: BP 152/78
--- NOTE | 2019-03-01 06:36 | Progress Note ---
Standard Progress Note Progress Notes/Assess & Plan Date Seen by a Provider: Mar 01, 2019 Time Seen by a Provider: 06:34 Progress/Assessment & Plan post op check no complaints radiographs--HW well positioned without fracture LLE--2 plus DP pulse with brisk cap refill. Intact DF and PF of toes and ankle with intact sensation throughout. S/P LTKA mobilize as able Final Diagnosis no complaints Vital Signs Date Time Temp Pulse Resp B/P (MAP) Pulse Ox O2 Delivery O2 Flow Rate FiO2 03/01/19 03:31 99.3 70 18 152/78 (102) 95 Room Air 02/28/19 23:46 100.8 78 18 145/57 (86) 98 Room Air 02/28/19 22:18 94 Room Air 02/28/19 21:40 101.1 02/28/19 20:15 101.7 02/28/19 20:05 101.7 93 16 169/77 (107) 96 Room Air 02/28/19 20:00 Room Air 02/28/19 18:30 93 Room Air 02/28/19 16:55 99.9 73 18 168/68 (101) 98 Room Air 02/28/19 14:23 99 Room Air 02/28/19 11:59 98.4 65 20 132/67 (88) 100 Room Air 02/28/19 10:16 95 Room Air 02/28/19 09:00 Room Air 02/28/19 07:42 98.4 65 18 153/67 (95) 98 Room Air 02/28/19 07:15 96 Room Air 02/28/19 07:00 18 I & O 03/01/19 07:00 Intake Total 2995 ml Output Total 2125 ml Balance 870 ml LLE--SLR with assistance. No calf tenderness. Neg Alison's. Incision clean and dry. s/p LTKA doing well DC after PT today KEN RIOS MD Mar 01, 2019 06:36
[2019-03-01] MEDS ORDERED: morphine INJ 4 MG/ML 1 ML (VIAL/SYRINGE) IVP PRN (06:45)
[2019-03-01] MEDS: MULTIVIT W/MINERALS TAB (THERAGRAN M) PO SCH (07:04)
[2019-03-01 07:15] LABS: BASOPHILS % (AUTO) 0 % (0-10); EOSINOPHILS # (AUTO) 0.1 10^3/uL (0.0-0.3); EOSINOPHILS % (AUTO) 2 % (0-10); HEMATOCRIT 32 % (40-54); HEMOGLOBIN 10.3 G/DL (13.3-17.7); LYMPHOCYTES # (AUTO) 1.5 X 10^3 (1.0-4.0); LYMPHOCYTES % (AUTO) 25 % (12-44); MEAN CORPUSCULAR HEMOGLOBIN 29 PG (25-34); MEAN CORPUSCULAR HGB CONC 32 G/DL (32-36); MEAN CORPUSCULAR VOLUME 91 FL (80-99); MEAN PLATELET VOLUME 9.7 FL (7.4-10.4); MONOCYTES # (AUTO) 0.8 X 10^3 (0.0-1.0); MONOCYTES % (AUTO) 13 % (0-12); NEUTROPHILS # (AUTO) 3.6 X 10^3 (1.8-7.8); NEUTROPHILS % (AUTO) 61 % (42-75); PLATELET COUNT 148 10^3/uL (130-400)
[2019-03-01] MEDS ORDERED: ASPI-999 PO (07:25)
[2019-03-01 07:44] LABS: ALANINE AMINOTRANSFERASE 17 U/L (0-55); ALBUMIN 3.4 GM/DL (3.2-4.5); ALKALINE PHOSPHATASE 49 U/L (40-136); BILIRUBIN,TOTAL 0.7 MG/DL (0.1-1.0); BUN/CREATININE RATIO 19; CALCIUM 8.7 MG/DL (8.5-10.1); CARBON DIOXIDE 22 MMOL/L (21-32); CHLORIDE 110 MMOL/L (98-107); CREATININE SERUM 0.97 MG/DL (0.60-1.30); GFR ESTIMATED > 60; GLUCOSE 96 MG/DL (70-105); SODIUM 140 MMOL/L (135-145); TOTAL PROTEIN 5.9 GM/DL (6.4-8.2)
[2019-03-01 08:00] VITALS: BP 163/60
[2019-03-01] MEDS: SENNA W/DOCUSATE (SENOKOT S) TABLET PO SCH (08:25)
[2019-03-01] MEDS: ASPIRIN E.C. 81 MG (ECOTRIN) TAB PO SCH (08:25)
[2019-03-01] MEDS: ENOXAPARIN 30 MG/0.3 ML (LOVENOX) SYR SC SCH (08:25)
--- NOTE | 2019-03-01 10:02 | Physical Therapy Daily Note ---
PT Daily Note-Current Subjective Patient agrees to PT. Pain Numeric Pain Scale: 5-Moderate Pain Location: Left Location Body Site: Knee Pain Description: Acute Mental Status Patient Orientation: Person, Time, Situation Transfers Therapy Code Descriptions/Definitions Functional [place] Measure: 0=Not Assessed/NA 4=Minimal Assistance 1=Total Assistance 5=Supervision or Setup 2=Maximal Assistance 6=Modified [place] 3=Moderate Assistance 7=Complete [place] Therapy Quality Codes: 6 Independent with activity with or without an assistive device 5 Patient requires set up or clean up by helper. Patient completes activity by themselves 4 Supervision or touching assist (CGA). [place] provide cues , steadying assist 3 The helper provides less than half the effort to complete the activity 2 The helper provides more than half the effort to complete the activity 1 Dependent. The helper does all the effort to complete an activity 7 Patient refused to complete or attempt activity 9 The patient did not perform the activity before the current illness or injury 88 Not attempted due to Medical conditions or safety concerns Transfers (B, C, W/C) (FIM): 6 Scootin Rollin Supine to/from Sit: 6 Sit to/from Stand: 6 Bed to/from Chair: 6 Weight Bearing Left Lower Extremity: Left Weight Bearing/Tolerated Gait Training Gait (FIM): 6 Distance (FIM): 3=150 ft Distance: 275' x 2 Gait Level of Assist: 6 Gait Assistive Device: FWW steady, antalgic Stair Training Stair Training: Handrails/: 1 handrail, uses walker Stairs (FIM): 2 #of Steps: 4 Stairs: Pattern: Step to Level of Assist: 5 Exercises Supine Ex: Ankle pumps, Quad Set, Heel Slides, Straight leg raise Supine Reps: 15 Seated Therapy Exercises: Long arc quads Seated Reps: 15 Assessment Patient tolerated treatment well and ROM is 90-2 degrees. PT to dismiss patient from services at this time. PT Short Term Goals Short Term Goals Time Frame: Mar 06, 2019 Transfers (B,C,W/C) (FIM): 6 Gait (FIM): 2 Gait Distance Comment: 50' Gait Level of Assist: 4 Gait Assistive Device: FWW PT Plan Treatment/Plan Treatment Plan: Discontinue PT, goals met Treatment Plan: Bed Mobility, Education, Functional Activity Martin, Functional Strength, Gait, Safety, Therapeutic Exercise, Transfers Treatment Duration: Mar 06, 2019 Frequency: 11 times per week Estimated Hrs Per Day: .25 hour per day Patient and/or Family Agrees t: Yes Time/GCodes Time In: 901 Time Out: 924 Total Billed Treatment Time: 23 Total Billed Treatment 1 visit EX 13 min FA 10 min SANCHEZ LOREDO PT Mar 01, 2019 10:02
[2019-03-01] MEDS ORDERED: MELATONIN 3 MG TABLET PO SCH (21:00)
== END 2019-03-01 10:13 | disposition home health service (06) | DRG 470 ==
LOC: 4TH 05:48 → SURG 05:49 → 4TH 11:59
PROVIDERS: ADMIT Orthopaedic Surgery; ATTEND Orthopaedic Surgery
PROC: 0SRD0J9 Replacement of Left Knee Joint with Synthetic Substitute, Cemented, Open Approach (ICD-10-PCS; principal; 2019-02-27 07:24)
DX: M17.12 Unilateral primary osteoarthritis, left knee (principal); I10 Essential (primary) hypertension; E78.5 Hyperlipidemia, unspecified; G47.00 Insomnia, unspecified
CPT/HCPCS: 36415; 73560; 80053; 85025; 86850; 86900; 86901; 94664; 94760

== ENCOUNTER 2019-10-31 11:13 | Outpatient (CLI) | payer MEDICARE, OTHER ==
[~2019-10-31] VITALS: Ht 182 cm; Wt 84.9 kg
[~2019-10-31 11:13] MED LIST changes: +ASPI-999 PO; +OXYC1TAB87 PO
[2019-10-31] MEDS ORDERED: FLAX100031 PO (11:33)
[2019-10-31] MEDS ORDERED: SALM1CAP4 PO (11:33)
[2019-10-31] MEDS ORDERED: LISI10TA2 PO (11:33)
[2019-10-31 11:36] VITALS: BP 150/62
[2019-10-31 12:18] LABS: BASOPHILS % (AUTO) 0 % (0-10); EOSINOPHILS # (AUTO) 0.2 10^3/uL (0.0-0.3); EOSINOPHILS % (AUTO) 3 % (0-10); HEMATOCRIT 40 % (40-54); HEMOGLOBIN 13.3 G/DL (13.3-17.7); LYMPHOCYTES # (AUTO) 1.5 X 10^3 (1.0-4.0); LYMPHOCYTES % (AUTO) 32 % (12-44); MEAN CORPUSCULAR HEMOGLOBIN 30 PG (25-34); MEAN CORPUSCULAR HGB CONC 33 G/DL (32-36); MEAN CORPUSCULAR VOLUME 90 FL (80-99); MEAN PLATELET VOLUME 9.4 FL (7.4-10.4); MONOCYTES # (AUTO) 0.5 X 10^3 (0.0-1.0); MONOCYTES % (AUTO) 11 % (0-12); NEUTROPHILS # (AUTO) 2.5 X 10^3 (1.8-7.8); NEUTROPHILS % (AUTO) 54 % (42-75); PLATELET COUNT 182 10^3/uL (130-400); RED CELL DISTRIBUTION WIDTH 13.9 % (10.0-14.5); WHITE BLOOD COUNT 4.8 10^3/uL (4.3-11.0)
[2019-10-31 12:19] LABS: BILIRUBIN,URINE NEGATIVE (NEGATIVE); CLARITY,URINE CLEAR; COLOR,URINE YELLOW; GLUCOSE, URINE (UA) NEGATIVE (NEGATIVE); KETONES,URINE NEGATIVE (NEGATIVE); LEUKOCYTE ESTERASE ,URINE NEGATIVE (NEGATIVE); NITRITE,URINE NEGATIVE (NEGATIVE); PH,URINE 5.5 (5-9); PROTEIN,URINE NEGATIVE (NEGATIVE)
[2019-10-31 12:27] LABS: BACTERIA,URINE NEGATIVE /HPF; SQUAMOUS EPITHELIAL CELL,UR RARE /HPF
[2019-10-31 12:30] LABS: PROTHROMBIN TIME PATIENT 13.2 SEC (12.2-14.7)
[2019-10-31 12:38] LABS: ERYTHROCYTE SEDIMENTATION RATE 15 MM/HR (0-30)
[2019-10-31 12:39] LABS: ALANINE AMINOTRANSFERASE 15 U/L (0-55); ALBUMIN 4.1 GM/DL (3.2-4.5); ALKALINE PHOSPHATASE 68 U/L (40-136); BILIRUBIN,TOTAL 0.6 MG/DL (0.1-1.0); BUN/CREATININE RATIO 21; CALCIUM 9.5 MG/DL (8.5-10.1); CARBON DIOXIDE 29 MMOL/L (21-32); CHLORIDE 108 MMOL/L (98-107); CREATININE SERUM 1.13 MG/DL (0.60-1.30); GFR ESTIMATED > 60; GLUCOSE 91 MG/DL (70-105); POTASSIUM 4.1 MMOL/L (3.6-5.0); SODIUM 141 MMOL/L (135-145); TOTAL PROTEIN 6.9 GM/DL (6.4-8.2)
== END 2019-10-31 14:09 | disposition home or self-care (01) ==
LOC: PREOP 11:13
PROVIDERS: ATTEND Orthopaedic Surgery
DX: Z01.812 Encounter for preprocedural laboratory examination (principal); M17.11 Unilateral primary osteoarthritis, right knee
CPT/HCPCS: 36415; 80053; 81000; 85025; 85610; 85652; 86850; 86900; 86901; 87081